=== PATIENT | female | born 1985 | race Caucasian/White ===

== ENCOUNTER 2018-08-05 08:30 | Emergency (ER) | payer OTHER ==
[~2018-08-05] VITALS: Ht 160 cm; Wt 46.3 kg
[~2018-08-05 08:30] MED LIST: ALBUTEROL90 MCG IH; DEXTROMETHORPHAN; FLONS; MED4 PO; PROMETHAZINE; SYMBICORT
[2018-08-05 08:35] VITALS: Ht 160 cm; Wt 46.3 kg
[2018-08-05 09:33] VITALS: BP 122/77
== END 2018-08-05 09:33 | disposition home or self-care (01) ==
LOC: ED 08:30
DX: S67.21XA Crushing injury of right hand, initial encounter (principal); J44.9 Chronic obstructive pulmonary disease, unspecified; J45.909 Unspecified asthma, uncomplicated; K21.9 Gastro-esophageal reflux disease without esophagitis; G89.29 Other chronic pain; Z88.6 Allergy status to analgesic agent; Z88.1 Allergy status to other antibiotic agents; Z91.013 Allergy to seafood; Z91.011 Allergy to milk products; W23.0XXA Caught, crushed, jammed, or pinched between moving objects, initial encounter; Y93.89 Activity, other specified; Y92.89 Other specified places as the place of occurrence of the external cause; Y99.8 Other external cause status